=== PATIENT | female | born 1985 | race Caucasian/White ===

== ENCOUNTER 2019-08-22 09:21 | Emergency (ER) | payer SELFPAY ==
--- NOTE | 2019-08-22 09:26 | ED.FEMALEGU ---
HPI - Female Genitourinary General Chief complaint: Urogenital-Female Stated complaint: uti Time Seen by Provider: 08/22/19 09:40 Source: patient and RN notes reviewed Mode of arrival: ambulatory Limitations: no limitations History of Present Illness MD elicited complaint: UTI Related Data Home Medications Medication Instructions Recorded Confirmed levonorgestrel [Mirena] 1 device INTRAUTERINE ONCE 08/22/19 08/22/19 Allergies Allergy/AdvReac Type Severity Reaction Status Date / Time No Known Allergies Allergy Verified 08/22/19 09:42 Review of Systems Review of Systems: Narrative: CONSTITUTIONAL: Denies malaise, chills, sweats, or fever. CARDIOVASCULAR: Denies chest pain, palpitations Denies abdominal pain, nausea, vomiting, diarrhea, bloody, or mucous stools. GENITOURINARY: Reports dysuria, frequency, urgency hematuria. Denies abnormal vaginal discharge MUSCULOSKELETAL: Denies back pain myalgia. All systems reviewed & are unremarkable except as noted in HPI and below PMFSH Social History Social History Gender identity (if verbalized by the patient): Female Comments At time of signature, agree with nursing past medical, surgical, social and family history. There is no relevant family history pertinent to the presenting complaint Exam Narrative: Exam Narrative: GENERAL: Well-appearing, well-nourished, and in no acute distress. HEAD: Normocephalic. EYES: PERRLA, conjunctivae clear. NECK: Supple. No lymphadenopathy CHEST: Clear to auscultation. No respiratory distress. HEART: Regular rate and rhythm. No murmur heard. Normal peripheral pulses. ABDOMEN: Soft, nontender upon palpation, nondistended, normal active bowel sounds, no palpable or pulsatile masses, no guarding. No CVA tenderness SKIN: Warm, dry, no rash. NEURO: Alert and oriented x3. PSYCH: Normal mood and affect Course Course Emergency Course: Patient is aware of diagnosis, understands and agrees to treatment plan. Anticipatory guidance given. Patient agrees to follow-up as directed and is aware of reasons to seek care at the emergency department. Portions of this record may have been created with voice recognition software Vital Signs Vital signs: Vital Signs Temperature 98.7 F 08/22/19 09:36 Pulse Rate 76 08/22/19 09:36 Respiratory Rate 16 08/22/19 09:36 Blood Pressure 120/67 08/22/19 09:36 Pulse Oximetry 99 08/22/19 09:36 Temperature 98.7 F 08/22/19 09:36 Pulse Rate 76 08/22/19 09:36 Respiratory Rate 16 08/22/19 09:36 Blood Pressure 120/67 08/22/19 09:36 Pulse Oximetry 99 08/22/19 09:36 Reviewed. MDM - Female Genitourinary MDM Narrative Medical decision making narrative: Exam findings and UA show no acute concerns or changes; patient is non-toxic appearing and is in no distress. Patient is appropriate for outpatient treatment and follow-up. Differential Diagnosis Differential diagnosis: Likely urinary tract infection, bacterial vaginosis, vaginitis and cystitis Lab Data Labs: Urine Glucose Negative Reference Range: Negative Urine Bilirubin Negative Reference Range: Negative Urine Ketone Negative Reference Range: Negative Urine Specific Hillman 1.025 Reference Range:1.001-1.035 Urine Blood 2+ Reference Range: Negative * * Urine pH 5.5 Reference Range: 5.0-9.0 Urine Protein 1+ Reference Range: Negative Urine Urobilinogen 0.2 Reference Range: 0.2-1.0 Urine Nitrate Negative Reference Range: Negative Urine Leukocyte 1+ Reference Range: Negative Urine Color Yellow Reference Range: Yellow Urine Characteristics Clear Urine Characteristics
[2019-08-22 09:36] VITALS: BP 120/67; PULSE 76; RESP 16; TEMP 37.1; O2SAT 99
== END 2019-08-22 09:50 | disposition home or self-care (01) ==
PROVIDERS: Emergency Provider Nurse Practitioner; PCP Family Medicine Sports Medicine
DX: N39.0 Urinary tract infection, site not specified (principal)
CPT/HCPCS: 81003; 87077; 87086; 87088; 87186; 99203; G0463

== ENCOUNTER 2019-10-22 14:00 | Emergency (ER) | payer OTHER, SELFPAY ==
[2019-10-22 14:10] VITALS: BP 116/71; PULSE 72; RESP 16; TEMP 36.8; O2SAT 99
--- NOTE | 2019-10-22 14:10 | PC.NURSE ---
Pt sent to restroom from triage for urine specimen.
--- NOTE | 2019-10-22 14:17 | ED.FEMALEGU ---
HPI - Female Genitourinary General Chief complaint: Urogenital-Female Stated complaint: Sonstipatio;Possible UTI Time Seen by Provider: 10/22/19 14:18 Source: patient and RN notes reviewed Mode of arrival: ambulatory Limitations: no limitations History of Present Illness HPI Narrative: This is a 34 years old female presents to the office for an evaluation of possible UTI for few days. Symptoms include urinary urgency and pain. She also reports vaginal itchy, painful sex, suprapubic pain and lower back pain. Denies vaginal discharge. She took Monistat for her symptoms. She is sexually active with one partner however her partner is new. She has an appointment for STD/pap on Monday. Related Data Home Medications Medication Instructions Recorded Confirmed levonorgestrel [Mirena] 1 device INTRAUTERINE ONCE 08/22/19 10/22/19 Allergies Allergy/AdvReac Type Severity Reaction Status Date / Time No Known Allergies Allergy Verified 10/22/19 14:21 Review of Systems Review of Systems: Narrative: CONSTITUTIONAL: Denies fever or feeling ill ENT: Denies congestion CARDIOVASCULAR: Denies chest pain RESPIRATORY: Denies dyspnea GASTROINTESTINAL: Denies abdominal pain, nausea, vomiting GENITOURINARY:Reports urinary pain, urgency; denies discharge/lesions SKIN: Denies rash MUSCULOSKELETAL: Reports lower back pain NEUROLOGIC: Denies lightheaded All other systems reviewed are negative, except as documented in HPI. PMFSH Social History Social History Gender identity (if verbalized by the patient): Female Comments At time of signature, I agree with nursing past medical, surgical, social and family history. There is no relevant family history pertinent to the presenting complaint. Exam Narrative: Exam Narrative: GENERAL: This is a well-nourished, well-developed patient, in no apparent distress. CARDIOVASCULAR: Regular rate and rhythm without murmurs, gallops, or rubs. RESPIRATORY: Clear to auscultation. Breath sounds equal bilaterally. No wheezes, rales, or rhonchi. GASTROINTESTINAL: Abdomen soft, non-tender, nondistended. Bowel sounds are active. No hepato-splenomegaly, or palpable masses. No guarding. SKIN: warm, intact with no suspicious lesions or rash, good texture and turgor. NEURO: awake, alert, and oriented to person, place and time. There were no obvious focal neurologic abnormalities. Steady gait Tyshawn Coma Scale Eye Opening: Spontaneous 4 Tyshawn Coma Scale Motor: Obeys Commands 6 [place] Coma Scale Verbal: Oriented 5 Course Vital Signs Vital signs: Vital Signs Temperature 98.2 F 10/22/19 14:10 Pulse Rate 72 10/22/19 14:10 Respiratory Rate 16 10/22/19 14:10 Blood Pressure 116/71 10/22/19 14:10 Pulse Oximetry 99 10/22/19 14:10 Temperature 98.2 F 10/22/19 14:10 Pulse Rate 72 10/22/19 14:10 Respiratory Rate 16 10/22/19 14:10 Blood Pressure 116/71 10/22/19 14:10 Pulse Oximetry 99 10/22/19 14:10 MDM - Female Genitourinary MDM Narrative Medical decision making narrative: I offered to do gonorrhea chlamydia/trichomonas testing here however patient is rather wait until her appointment. So, I went ahead and treat patient for UTI since she has UTI symtoms with questionable urine dipstick. Discharge instructions reviewed with patient, as well as provided in writing per nursing staff. The instructions also include specific and strict return/GO TO THE ER as well as f/u information. All questions have been answered, and the patient deny any further questions with discharge and discharge plan. Differential Diagnosis Differential diagnosis: Likely urinary tract infection, cervicitis, vaginitis and cystitis Lab Data Attestation: I reviewed the patient's lab results. Labs: Urine Glucose Negative Reference Range: Negative Urine Bilirubin Negative Reference Range: Negative Urine
== END 2019-10-22 14:36 | disposition home or self-care (01) ==
PROVIDERS: Emergency Provider Nurse Practitioner
DX: N30.01 Acute cystitis with hematuria (principal); N76.0 Acute vaginitis
CPT/HCPCS: 81003; 87086; 87088; 99213; G0463

== ENCOUNTER 2019-12-17 15:05 | Outpatient (CLI) | payer OTHER, SELFPAY ==
--- NOTE | ~2019-12-17 | MM_ITS ---
EXAMINATION: MM screening kelsey BI w humberto HISTORY: Screening TECHNIQUE: Craniocaudal and mediolateral oblique 3-D tomosynthesis images were obtained and synthetic 2-D images were generated. CAD analysis was submitted and interpreted. COMPARISON: No prior mammogram is available for comparison at this institution. BREAST PARENCHYMAL COMPOSITION: The breasts are heterogeneously dense, which may obscure small masses . FINDINGS: There is no evidence of suspicious mass, calcification, or architectural distortion to sugg est malignancy in either breast. There has been no suspicious interval change. IMPRESSION: 1. No mammographic evidence of malignancy. 2. Recommend routine screening mammography in one year. BI-RADS Category 1: Negative Reviewed, dictated and finalized at location A.
== END 2019-12-17 15:06 | disposition home or self-care (01) ==
PROVIDERS: Visit Provider Surgery Plastic and Reconstructive Surgery
DX: Z12.31 Encounter for screening mammogram for malignant neoplasm of breast (principal)
CPT/HCPCS: 77063; 77067

== ENCOUNTER 2020-04-11 01:18 | Outpatient (CLI) | payer OTHER, SELFPAY ==
[2020-04-11 19:31] LABS: SARS-CoV-2 RNA PCR Negative
== END 2020-04-11 01:19 | disposition home or self-care (01) ==
LOC: ANHCOVIDDT 01:19
PROVIDERS: Visit Provider Surgery Plastic and Reconstructive Surgery
DX: Z01.818 Encounter for other preprocedural examination (principal); Z20.828 Contact with and (suspected) exposure to other viral communicable diseases
CPT/HCPCS: 87635; C9803; U0003

== ENCOUNTER 2020-04-14 | Day surgery (SDC) | payer OTHER, SELFPAY ==
[2020-04-02 14:58] VITALS: BMI 21.5
--- NOTE | 2020-04-13 12:44 | WPDANESEPPF ---
Anes - Initial Pre Proc Eval Procedure: Operation Date: 04/14/20 07:45 Proposed Procedures p Bilateral Augmentation Mammoplasty - Ramirez Ayoub MD Date/Time: 04/13/20 12:44 Surgeon: Ramirez Ayoub MD Pre Op Diagnosis: Micromastia Patient Data Age: 34 Gender: F Height: 1.63 m Weight: 57 kg Allergies Allergy/AdvReac Type Severity Reaction Status Date / Time No Known Allergies Allergy Verified 04/14/20 06:18 Home Medications Medication Instructions Recorded Confirmed Type No Home Medications 04/02/20 04/14/20 History Patient hx anesthesia problems: none Family hx anesthesia problems: none PMFSH Social History Social History Smoking packs per day: 1 Smoking cigarettes per day: 20.0 Years smoked: 19 Smoking pack-years: 19.00 Smoking status: Former smoker Alcohol intake: current Last use: 08/13/19 Gender identity (if verbalized by the patient): Female Spiritual care concerns: No Anes - Eval Final PreProcedure Day of Procedure 04/13/20 12:44 Patient weight: normal Heart: regular rate and rhythm Lungs: clear to auscultation and normal air movement Airway: Mallampati scale class II Neurological: alert and oriented Last oral intake: >/= 8 hours ASA classification: II Emergent: no Anesthetic plan: proceed Anesthesia type and monitoring: general LMA and standard monitoring Informed Consent: The patient's anesthetic plan and its attendant risks and benefits were discussed with the patient/family/POA. Questions were solicited and answers provided to the satisfaction of the patient/family/POA.
[2020-04-14] VITALS (8 sets, daily range): BP systolic 121–139; BP diastolic 79–88; PULSE 81–92; RESP 12–16; TEMP 36.4–36.6; O2SAT 97–100
[2020-04-14] MEDS: LACTATED RINGERS 1,000 ML 30 ML IV CONT (06:34)
--- NOTE | 2020-04-14 06:55 | WPDHPUPDATE1 ---
History and Physical Update Update Date/Time: 04/14/20 06:55 History and Physical has been reviewed, including an updated exam of the patient. There are NO changes in the patient's condition. Risks, benefits, and alternatives have been discussed and questions answered. Patient agrees to proceed with procedure.
[2020-04-14] MEDS: ceFAZolin 2 GM/D5W 50 ML 2 GM/50 ML BAG IVPB (07:50)
[2020-04-14] MEDS: LIDO 1%/EPINEPHRINE 1:100,000 50 ML VIAL 60 ML INFILTRATE (07:57)
--- NOTE | 2020-04-14 08:32 | SUR.OPER ---
Right breast implant to field in antibiotic solution 0830 [facility] 295cc [id number], Exp 2024-11-09, Lot [id number].
--- NOTE | 2020-04-14 08:41 | SUR.OPER ---
Left breast Implant to field in antibiotic solution 0841/ [facility] Brown 295cc, SN [id number], Exp 2024-06-12, Lot [id number].
[2020-04-14] MEDS: fentaNYL CITRATE INJ (*CRX) 100 MCG/2 ML VIAL 25 MCG IV PUSH ×8 (09:35→09:58)
--- NOTE | 2020-04-18 07:11 | PM.PROC ---
Procedure Note - Detailed Date of procedure: 04/18/20 Pre-op diagnosis: Micromastia Post-op diagnosis: same Procedure performed: Bilateral augmentation mammaplasty Description of procedure: She is here today for bilateral breast augmentation. Previously and again today the risks, benefits, alternatives were discussed in extensive detail. I wanted her to be very realistic about the risks involved as well as expectations. Today while marking it does appear her left fold is intact although very atrophic / poorly defined. Further she does appear to have a tight lower pole as in a tuberous breast without additional findings. This was outlined extensively so she understands the complexity and risks of her procedure. We discussed aftercare and what to monitor for. Made sure answered all of her questions to her satisfaction today and consent was obtained. Marked in the preoperative holding area with their verification. The patient was taken to the operating room placed supine on the operating table. Anesthesia was provided by anesthesiology. A surgical time-out was taken. We cleansed the skin and 1% lidocaine and 0.25% Marcaine with epinephrine was used anesthetize as a field block. She was prepped and draped in a standard sterile fashion. Tegaderm nipple Escobar were placed. A 15 blade used to make an incision along the inframammary fold. Dissection was continued at 45 degree angle until the chest wall as identified. On the left a clearly defined band was identified in the lower pole of the breast creating the constriction deformity (and to a lesser degree in the right breast). I scored and completely released these bands to allow the lower pole of the breast to expand. I incised the pectoralis major along its inferior border and completely released the inferior border leaving the medial border intact. I created a subpectoral pocket in the appropriate dimensions based on our preoperative planning for the implant. I then copiously irrigated with saline solution and verified a strict hemostasis. Next the use a triple antibiotic and Betadine containing solution to irrigate the pocket. I washed my gloves with the triple antibiotic and Betadine solution. We washed the implant immediately upon opening it with this solution and only opened it when we needed it. I used implant funnel and no-touch technique. The implant was introduced into the pocket using the funnel. Having verified positioning of the implant this was closed using 2-0 Vicryl followed by 3-0 Monocryl in a running subcuticular 4-0 Monocryl followed by tissue glue. Fluffs, Solis wrap, and surgical bra were placed. Patient was awoke and taken to PACU without difficulty. All instrument sponge counts were correct at the end of the case. Anesthesia: GLMA Surgeon: Ramirez Ayoub MD Estimated blood loss (mL): 10 Drains: No Packing: No Pathology: none sent Complications: No immediate complications Condition: stable Disposition: PACU Findings: Bilateral Natrelle Inspira SoftTouch Silicone Implants 295cc Right REF# [id number] Right REF# [id number]
== END 2020-04-14 11:02 | disposition home or self-care (01) ==
PROVIDERS: Visit Provider Surgery Plastic and Reconstructive Surgery
PROC: (CPT 19325; principal; 2020-04-14 07:45)
DX: Z41.1 Encounter for cosmetic surgery (principal); N64.82 Hypoplasia of breast; Z87.891 Personal history of nicotine dependence
CPT/HCPCS: 19325; J0131; J0690; J1100; J1580; J2250; J2405; J2704; J3010; J7120

== ENCOUNTER 2023-01-26 18:05 | Emergency (ER) | payer BC, SELFPAY ==
--- NOTE | 2023-01-26 18:07 | ED.EYEPROB ---
HPI - Eye Problem General Chief complaint: Eye Problems Stated complaint: Lt Eye Irritation Time Seen by Provider: 01/26/23 18:05 Source: patient Mode of arrival: ambulatory Limitations: no limitations History of Present Illness HPI Narrative: Samantha is a 37-year-old female patient presenting to the clinic today with complaints of left lower eye lid irritation x1-2 days. She reports no known injury to the eyes reports is painful and slightly itchy. No fever or chills. She has not had any drainage coming from the eye. Related Data Allergies Allergy/AdvReac Type Severity Reaction Status Date / Time No Known Allergies Allergy Verified 01/26/23 18:19 Review of Systems Review of Systems: Pertinent positives per HPI. Patient denies any fever, chills, rash, headache, visual changes, dizziness, cough, runny nose, sore throat, shortness of breath, chest pain, palpitations, nausea, vomiting, diarrhea, constipation, abdominal pain, or any urinary issues. PMFSH Social History Social History Smoking packs per day: 1 Smoking cigarettes per day: 20.0 Years smoked: 19 Smoking pack-years: 19.00 Smoking status: Former smoker Alcohol intake: current Last use: 08/13/19 Gender identity (if verbalized by the patient): Female Spiritual care concerns: No Comments At the time of my signature, I reviewed and agree with the nursing past medical, surgical, social, and family history. There is no relevant family history pertinent to the patient complaint. Exam Narrative: General: Well-developed, well nourished, in no apparent distress Head: Normocephalic, atraumatic Eyes: Pupils equally round and reactive to light bilaterally, EOM intact, sclera and conjunctive clear, no discharge, internal stye to the left lower outer eyelid with redness and swelling, mild tenderness to palpation, no drainage Ears: TMs intact and clear, ear canals clear, no drainage, grossly hearing normal. Nose: Nares patent, no discharge, no inflammation, no sinus tenderness. Mouth: Oropharynx without lesions or masses, good dentition, MMM. Neck: Supple, trachea midline, no enlargement of anterior or posterior cervical nodes, no thyroid masses or goiter palpable. Cardio: Regular rate and rhythm, s1 and s2 normal, no murmur appreciated. Resp: Clear to auscultation bilaterally anteriorly and posteriorly, no rhonchi, rales, wheezing or rubs Course Course Emergency Course: Portions of this record may have been created with voice recognition software. Level of Care: Express Care Visit Vital Signs Vital signs: Vital signs reviewed MDM - Eye Problem MDM Narrative Medical decision making narrative: At the time of visit patient is resting comfortably on the exam table. I suspect patient has an internal hordeolum. Prescription for tobramycin drops was sent to the pharmacy and supportive measures were discussed with the patient she voiced understanding discharge instructions agrees to treatment plan. Differential Diagnosis Differential diagnosis: Likely corneal abrasion, conjunctivitis, acute iritis, periorbital cellulitis, subconjunctival hemorrhage, corneal ulcer and ruptured globe Discharge Plan Discharge Clinical Impression: Hordeolum eyelid, internal Qualifiers: Laterality: left Eyelid: lower Qualified Code(s): H00.025 - Hordeolum internum left lower eyelid Patient Disposition: Home, Self-Care Condition: Stable Instructions: Priyank Tobar (ED) Additional Instructions: Apply warm compress to the affected area for 20 minutes at a time every hour May take Tylenol/Motrin as needed for pain Instill tobramycin eyedrops as prescribed Follow-up with your PCP in 3-5 days if symptoms persist or sooner if they worsen Prescriptions: New tobramycin 0.3 % drops 1 drp LEFT EYE Q4H 7 Days Qty: 5 0RF Follow-up/Referrals: UNKNOWN,DOCTOR [Non-Staff] -
[2023-01-26 18:16] VITALS: BP 145/74; PULSE 71; RESP 18; TEMP 36.8; O2SAT 100
== END 2023-01-26 18:23 | disposition home or self-care (01) ==
PROVIDERS: Emergency Provider Nurse Practitioner Family
DX: H00.025 Hordeolum internum left lower eyelid (principal); Z87.891 Personal history of nicotine dependence
CPT/HCPCS: 99213; G0463

== ENCOUNTER 2025-04-07 15:54 | Outpatient (CLI) | payer BC, SELFPAY ==
[2025-04-07 16:40] LABS: Hematocrit 38.5 % (37.0-47.0); Hemoglobin 13.2 g/dL (12.0-15.0); Immature Granulocyte Percent A 0.6 % (0-0.5); Lymphocytes Absolute Auto 2.26 K/mm3 (0.9-3.2); Mean Corpuscular HGB Conc 34.3 g/dl (32-36); Mean Corpuscular Hemoglobin 30.2 pg (26-34); Mean Corpuscular Volume 88.1 fl (80-100); Nucleated Red Blood Cells Absolute Auto 0.000 K/mm3 (0.0-0.012); Nucleated Red Blood Cells Perc 0.0 % (0.0-0.2); Platelet Count Result 279 k/mm3 (150-375); Red Blood Count 4.37 M/mm3 (4.2-5.4); White Blood Count 8.2 K/mm3 (4.5-10.0)
--- OUTSIDE RECORDS SUMMARY | 2025-04-07 17:08 | XMS_ITS | Clinical Summary ---
Author Organization [facility] Address [facility] [place] [address] Care Team Providers Care Data Modeler Name Role Phone Dayna Granados NP Primary Care Provider Allergies No known active allergies Medications nicotine (NICODERM CQ) 21 MG/24HRIndication s:Nicotine dependence with other nicotine-induced disorder, unspecified nicotine product type Place 1 patch (21 mg total) onto the skin daily. 28 patch 1 04/20/2023 Active Active Problems Problem Noted Date Diagnosed Date External hemorrhoid 04/20/2023 Nicotine dependence with oth er nicotine-induced disorder, unspecified nicotine product type 04/20/2023 Immunizations Immunization Administration Dates Next Due Tdap (Boostrix) 10/09/2023 Tdap (Generic) 10/09/2016 Family History Medical History Relation Comments Depression Father Alcohol Abuse Mother Drug Abuse Mother Relation Status Comments Father Alive Mother Alive Social History Tobacco Use Types Packs/Day Years Used Date Smoking Tobacco: Every Day Cigarettes Smokeless Tobacco: Never Tobacco Cessation:Ready to Q uit: No; Counseling Given: Yes Alcohol Use Standard Drinks/Week Comments Yes 0 (1 standard drink = 0.6 oz pur e alcohol) AUDIT-C Answer Date Recorded Frequency of Alcohol Consumption Never 06/05/2018 Average Number of Drinks Not on file 019 Frequency of Binge Drinking Not on file 05/18 PHQ-2 Answer Date Recorded Patient Health Questionnaire-2 Score 1 04/20/2023 Comments No Sex and Gender Information Value Date Recorded Sex Assigned at Not on file Legal Sex Female 6:52 PM CDT Gender Identity Not on file Sexual Orientation Not on file Last Filed Vital Signs Vital Sign Reading Time Taken Comments Blood Pressure 113/66 10/09/2023 11:31 PM CDT Pulse 69 10/09/2023 11:31 PM CDT Temperature 36.3 C (97.3 F) 10/09/2023 11:31 PM CDT Respiratory Rate 16 10/09/2023 11:31 PM CDT Oxygen Saturation 98% 10/09/2023 11:31 PM CDT Inhaled Oxygen Concentration - - Weight 60.9 kg (134 lb 4.2 oz) 10/09/2023 9:20 P M CDT Height 162.6 cm (5' 4) 10/09/2023 9:20 PM CDT Body Mass Index 23.05 10/09/2023 9:20 PM CDT Plan of Treatment Health Maintenance Due Date Last Done Comments Cervical Cancer Screening Pa p Smear (Age 30 to 64) Every 3 Years 1983 Annual Physical 07/21/1986 Hepatitis C 07/21/2001 Hepatitis B Vaccines (1 of 3 - 19+ 3-dose series) 07/21/2002 Pneumococcal Vaccine: Pediatrics (0 to 5 Years) and At-Risk Patients (6 to 49 Years) (1 of 2 - PCV) 07/21/2002 HPV Vaccines (1 - 3-dose SCD M series) 07/21/2010 Cervical Cancer Screening Pa p with HPV Testing (Age 30 to 64) Every 5 Years 07/21/2013 Cervical Cancer Screening [facility] HPV 07/21/2013 Mammogram Screening 2023 PHQ-2 (Physician Nicholson) 04/17/2024 04/20/2023 COVID-19 Vaccine (3 - 2024-2 6 season) 2024 09/20/2020, 08/30/2020 Influenza Adult (#1) 2025 DTaP, Tdap and Td Vaccines ( 3 - Td or Tdap) 10/08/2033 10/09/2023, 10/09/2016 Hepatitis A Vaccines Aged Out No long er eligible based on patient's age to complete this topic Meningococcal B Vaccine Aged Out No l onger eligible based on patient's age to complete this topic Meningococcal Vaccine Aged Out No smitha tee eligible based on patient's age to complete this topic RSV Immunizations Under 20 Months Aged Out No longer eligible b ased on patient's age to complete this topic Insurance [place] [address] Care Teams Data Modeler Relationship Specialty [place] [id number] [facility] [address] [place] [id number] PCP - General Nurse Practitioner Family 04/20/23
--- OUTSIDE RECORDS SUMMARY | 2025-04-07 17:08 | XMS_ITS | Patient Health Record ---
Author Organization [facility] Address [address] [facility] [address] [place] [address] Care Team Providers Care Sandwich Artist Name Role Phone Marita Wilkins APRN Primary Care Provider Helga Plummer Unavailable [phone] Allergies No Known Allergies Reason For Referral No Information Medications Medication SIG (Take, Route, Frequency, Duration) Notes Start Date End Date Status buPROPion HCl ER (XL) 300 MG Tablet Extended Release 24 Hour 1 tablet in the morning Orally Once a day; Duration: 90 days Active Social History Tobacco Use: Social History Observation Description Date Details (start date - stop date) Unknown Sex Assigned At : Social History Observation Description Sex Assigned At Female Social History Miscellaneous: Social Info Question Answer Notes Advance Care Planning Are you your own decision-maker Yes Do you have Power of Gas Collection System Operator for Health or [facility]? No Safety issues: Are there any firearms in the house? No Social History Social Info Question Answer Notes Household: Marital Status: Number of Adults in household: 2 Number of Children in Household: 2 Level of Education: Not Finished College Drug/Alcohol: Social Info Question Answer Notes Drugs Have you used drugs other than those for medical reasons in the past 12 months? Yes Methamphetamine? No Crack? No LSD? No Ecstacy? No Prescription opiates? Yes Marijuana? Yes Ketamine? No PCP? No Is there a minor (18 years or younger) at risk at home? No Are you still using? No Do you want treatment? No AUDIT-C (Standard) Did you have a drink containi ng alcohol in the past year? Yes How often did you have six or more drinks on one occasion in the past year? Never (0 point) How many drinks did you have on a typical day when you were drinking in the past year? 1 or 2 drinks (0 point) How often did you have a drink containing alcohol in the past year? Monthly or less (1 point) Tobacco Use: Social Info Question Answer Notes Tobacco Control (Standard) Tobacco use: Uses tobacco i n other forms Additional Details Category Social Info Options Details Miscellaneous: Occupation: [employer] Notes: former smoker nicotine, vapes cannabis, has abstained for one week plans to quit indefinitely Lives in [facility] with of 2 yrs, and 2 of her 3 kids. 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 former smoker nicotine, vapes cannabis, has abstained for one week plans to quit indefinitely Lives in [facility] with of 2 yrs, and 2 of her 3 kids. 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 former smoker nicotine, vapes cannabis Lives in [facility] with of 2 yrs, and 2 of her 3 kids. 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 former smoker nicotine, vapes cannabis, has abstained for one week plans to quit indefinitely Lives in [facility] with of 2 yrs, and 2 of her 3 kids. 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 former smoker nicotine, vape s cannabis Problems Problem Type SNOMED Code ICD Code Onset Dates Problem Status W/U Status Risk Notes Problem Cannabis abuse (39206227) Cannabis abuse, uncomplicated (F12.10) Active confirmed Problem Generalized anxiety disorder (33961333) Generalized anxiety disorder (F41.1) Active confirmed Problem Attention deficit hyperactivity disorder, combined type (68046347) Attention-deficit hyperactivity disorder, combined type (F90.2) Active confirmed Problem Insomnia disorder related to another mental disorder (94581502) Insomnia related to another mental disorder (F51.05) Active confirmed Problem Mild recurrent major depression (75136797) Mild recurrent major depression (F33.0) Active confirmed Problem Grief (335014737) Grief (F43.21) Active confirm ed Problem Recurrent major depression (64306460) Major depressive disorder, recurrent, in remission (F33.40) Active confirmed Vital Signs Heart Rate 77 /min 07/17/2024 Height-cm 162.56 cm 07/17/2024 Blood pressure diastolic 84 mm Hg 07/17/2024 Weight-kg 58.06 kg 07/17/2024 Height 64 in 07/17/2024 Blood pressure systolic 124 mm Hg 07/17/2024 Weight 128 lbs 07/17/2024 BMI 21.97 kg/m2 07/17/2024 Encounters Encounter Location Date Provider Diagnosis [facility] [employer] [place] [address] [place] [address] 07/17/2024 Helga Bender Generalized anxiety disorder F41.1 ; Major depressive disorder, recurrent, in remission F33.40 ; Attention-deficit hyperactivity disorder, combined type F90.2 ; Insomnia related to another mental disorder F51.05 ; Cannabis abuse, uncomplicated F12.10 ; Encounter for screening for depression Z13.31 and Encounter for screening for cardiovascular disorders Z13.6 [facility] [employer] [facility] [address] [place] [address] 03/31/2025 Helga Bender Assessments Encounter Date Diagnosis (ICD Code) Assessment Notes Treatment Notes Treatment Clinical Notes Section Notes 07/17/2024 Generalized anxiety disorder (ICD-10 - F41.1) 07/17/2024 Major depressive disorder, recurrent, in remission (ICD-10 - F33.40) 07/17/2024 Attention-deficit hyperactivity disorder, combined type (ICD-10 - F90.2) 07/17/2024 Insomnia related to another mental disorder (ICD-10 - F51.05) 07/17/2024 Cannabis abuse, uncomplicated (ICD-10 - F12.10) 07/17/2024 Encounter for screening for depression (ICD-10 - Z13.31) 07/17/2024 Encounter for screening for cardiovascular disorders (ICD-10 - Z13.6) 07/17/2024 Bin Lainez, a patient with a history of anxiety and depression, presents for follow-up after missing a previous appointment and running out of medication. Anxiety Assessment: Patient reports discontinuing buspirone due to increased irritability. Despite stopping the medication, the patient states their anxiety has been okay. This suggests that the patient's anxiety symptoms may be adequately controlled without pharmacological intervention at present. Plan: - Discontinue buspirone - Monitor anxiety symptoms without medication Depression Assessment: Patient reports feeling fine overall but experienced mood effects after missing 3 days of medication due to running out. This indicates that the current antidepressant regimen is likely effective when taken consistently, and the patient is stable on the current dose. Plan: - Continue current antidepressant medication (specific medication not mentioned in transcript) - Refill prescription for antidepressant medication - Educate patient on importance of medication adherence and timely appointment scheduling to avoid gaps in treatment Sleep disturbance Assessment: Patient reports sleep is good now, suggesting improvement in sleep quality. Previous sleep issues may have been related to buspirone, which has now been discontinued. Plan: - Continue to monitor sleep quality at follow-up appointments Plan Of Treatment No Information Insurance Providers Payer Name Payer Address Payer Phone Subscriber Number Group Number Insured Name Patient Relationship to Insured Coverage Start Date Coverage End Date [facility] [address] [place] [address] [id number] Katiana Lainez Self - patient is the insured Medical (General) History Medical History History ICD Code Past Psychiatric History: Anxiety Disord er,Major Depressive Disorder Surgical History Surgery Date(Month/Year) breast implants 2019 cervical surgery due to cancer 2003 wisdom teeth removd upper 02/19/2024
== END 2025-04-07 15:55 | disposition home or self-care (01) ==
LOC: ANHLAB 15:55
PROVIDERS: Visit Provider Obstetrics & Gynecology
DX: N92.0 Excessive and frequent menstruation with regular cycle (principal)
CPT/HCPCS: 36415; 85025